=== PATIENT | female | born 1990 | race African-American/Black ===

== ENCOUNTER 2016-10-20 12:47 | Emergency (ER) | payer OTHER ==
[~2016-10-20] VITALS: Ht 170.2 cm; Wt 90.7 kg
[~2016-10-20 12:47] MED LIST: CIPRO500 MG PO; DEPO-PROVER150 MG/M1 IM; FLAGYL500 MG PO; PHENERGAN 25 MG25 M1 PO
[2016-10-20] MEDS ORDERED: ONDANSETRON HCL4 M2 PO (14:26)
[2016-10-20] MEDS ORDERED: NAPROSYN500 MG PO (14:26)
[2016-10-20 14:34] VITALS: BP 119/69
== END 2016-10-20 14:40 | disposition home or self-care (01) ==
LOC: ER 12:47
DX: G43.901 Migraine, unspecified, not intractable, with status migrainosus (principal); F10.99 Alcohol use, unspecified with unspecified alcohol-induced disorder; Z86.73 Personal history of transient ischemic attack (TIA), and cerebral infarction without residual deficits